=== PATIENT | female | born 1990 | race Caucasian/White ===

== ENCOUNTER 2017-10-14 06:26 | Inpatient (IN) ==
[2017-10-14 06:56] LABS: Basophils # 0.1 10*3/uL (0.0-0.2); Basophils % 0.4 % (0.0-0.8); Eosinophils # 0.4 10*3/uL (0.0-0.87); Eosinophils % 2.7 % (0.00-10.9); Hematocrit 33.7 VOL% (35.7-47.0); Hemoglobin 11.1 GM/DL (12.0-16.0); Immature Granulocytes % 0.6 %; Immature Granulocytes Absolute 0.09 #; Lymphocytes % 21.5 % (21.3-54.2); Mean Corpuscular HGB Conc 32.9 GM/DL (32-36); Mean Corpuscular Hemoglobin 27 PG (27-34); Mean Corpuscular Volume 82.8 FL (87-102); Mean Platelet Volume 9.6 FL (9.6-12.0); Monocytes # 1.2 10*3/uL (0.11-0.8); Monocytes % 8.3 % (1.7-12.7); Neutrophils # 9.3 10*3/uL (1.4-7.4); Neutrophils % 66.5 % (38.7-73.9); Platelet Count 404 T/CUMM (130-400); Red Blood Count 4.07 MC/CUMM (3.8-5.5); Red Cell Distribution Width 13.2 % (9.3-17.3); White Blood Count 13.9 T/CUMM (4-12)
[2017-10-14] MEDS ORDERED: ONDANSETRON 4 MG/2 ML VIAL IV STA (07:05)
[2017-10-14] MEDS ORDERED: MORPHINE 4 MG/1 ML VIAL IV STA (07:05)
[2017-10-14] MEDS ORDERED: ONDANSETRON 4 MG/2 ML VIAL ONE (07:06)
[2017-10-14] MEDS ORDERED: MORPHINE 4 MG/1 ML VIAL ONE (07:07)
[2017-10-14] MEDS ORDERED: SODIUM CHLORIDE 0.9% 1,000 ML IV STA (07:18)
[2017-10-14 07:26] LABS: Albumin 2.4 G/DL (3.4-5.0); Bilirubin,Total 0.6 MG/DL (0.2-1.0); Calcium 9.1 MG/DL (8.5-10.1); Osmolality,Calculated 274.1 MOS/KG (273-304); Total Protein 8.3 G/DL (6.4-8.3)
[2017-10-14] MEDS ORDERED: CLINDAMYCIN INJ 900 MG in PREMIX 1 EACH IV STA (11:18)
[2017-10-14] MEDS ORDERED: GENTAMICIN INJ 160 MG in SODIUM CHLORIDE 0.9% 100 ML IV STA (11:18)
[2017-10-14] MEDS ORDERED: IBUPROFEN 800 MG TABLET PO PRN (12:46)
[2017-10-14] MEDS ORDERED: DEXTROSE 50% 25 GM/50 ML VIAL IV PRN (12:46)
[2017-10-14] MEDS ORDERED: GLUCAGON 1 MG VIAL IM PRN (12:46)
[2017-10-14] MEDS ORDERED: BISACODYL 10 MG SUPP RECTAL PRN (12:46)
[2017-10-14] MEDS ORDERED: MAGNESIUM HYDROXIDE SUSP 30 ML UDCUP PO PRN (12:46)
[2017-10-14] MEDS ORDERED: ONDANSETRON 4 MG/2 ML VIAL IV PRN (12:46)
[2017-10-14] MEDS ORDERED: ACETAMINOPHEN 325 MG TABLET PO PRN (12:46)
[2017-10-14] MEDS: INSULIN LISPRO 100 UNIT/ML SUBCUT SCH ×4 (14:44→21:43)
[2017-10-14] MEDS: LACTATED RINGERS 1,000 ML IV SCH (16:53)
[2017-10-14] MEDS: GABAPENTIN 300 MG CAPSULE PO SCH ×2 (17:35→21:16)
[2017-10-14] MEDS ORDERED: tiZANidine 4 MG TABLET PO SCH (21:00)
[2017-10-14] MEDS: metFORMIN 500 MG TABLET PO SCH (21:16)
[2017-10-14] MEDS: DOCUSATE SODIUM 100 MG CAPSULE PO SCH (21:17)
[2017-10-14] MEDS: CLINDAMYCIN INJ 900 MG in PREMIX 1 EACH IV SCH (21:35)
[2017-10-14 22:10] LABS: Apearance,Urine CLOUDY (Clear); Bilirubin,Urine Negative (Negative); Blood, Urine Small mg/dL (Negative); Glucose,Urine (UA) Negative (Negative); Hyaline Casts,Urine 6 /LPF (0-3); Ketones,Urine Negative (Negative); Mucus,Urine Occasional /LPF (Occasional); Nitrite,Urine Negative (Negative); Protein,Urine 30 MG/DL; RBC,Urine 11 /HPF (0-4); Squamous Epithelial Cell,Urine Occasional /HPF (0-10); Urine Color Yellow (Yellow); Urine Specific Gravity 1.014 (1.001-1.035); Urine Urobilinogen < 2.0 EU/DL (0.2-1.0); WBC,Urine 368 /HPF (0-6)
[2017-10-15] MEDS ORDERED: GENTAMICIN INJ 120 MG in PREMIX 1 EACH IV SCH
[2017-10-15] MEDS: LACTATED RINGERS 1,000 ML IV SCH ×2 (03:22→14:45)
[2017-10-15] MEDS: CLINDAMYCIN INJ 900 MG in PREMIX 1 EACH IV SCH ×2 (03:22→08:06)
[2017-10-15 05:44] LABS: Basophils # 0.1 10*3/uL (0.0-0.2); Basophils % 0.5 % (0.0-0.8); Eosinophils # 0.6 10*3/uL (0.0-0.87); Eosinophils % 4.8 % (0.00-10.9); Hematocrit 31.9 VOL% (35.7-47.0); Hemoglobin 9.8 GM/DL (12.0-16.0); Immature Granulocytes % 0.7 %; Immature Granulocytes Absolute 0.09 #; Lymphocytes # 2.9 10*3/uL (1.4-4.0); Lymphocytes % 23.6 % (21.3-54.2); Mean Corpuscular HGB Conc 30.7 GM/DL (32-36); Mean Corpuscular Hemoglobin 27 PG (27-34); Mean Corpuscular Volume 87.9 FL (87-102); Mean Platelet Volume 9.8 FL (9.6-12.0); Monocytes # 1.1 10*3/uL (0.11-0.8); Monocytes % 8.9 % (1.7-12.7); Neutrophils # 7.4 10*3/uL (1.4-7.4); Neutrophils % 61.5 % (38.7-73.9); Platelet Count 376 T/CUMM (130-400); Red Blood Count 3.63 MC/CUMM (3.8-5.5); Red Cell Distribution Width 13.6 % (9.3-17.3); White Blood Count 12.1 T/CUMM (4-12)
[2017-10-15 06:09] LABS: Calcium 8.7 MG/DL (8.5-10.1); Osmolality,Calculated 275.7 MOS/KG (273-304); Potassium 4.9 MMOL/L (3.5-5.1)
[2017-10-15] MEDS: INSULIN LISPRO 100 UNIT/ML SUBCUT SCH ×2 (07:07→12:23)
[2017-10-15] MEDS: GABAPENTIN 300 MG CAPSULE PO SCH ×2 (08:01→14:44)
[2017-10-15] MEDS: metFORMIN 500 MG TABLET PO SCH (08:01)
[2017-10-15] MEDS: DOCUSATE SODIUM 100 MG CAPSULE PO SCH (08:02)
[2017-10-15] MEDS ORDERED: SILVER SULFADIAZINE 1% CREAM 25 GM TUBE TOP SCH (09:00)
[2017-10-15 11:58] VITALS: BP 106/64
[2017-10-15] MEDS ORDERED: GENTAMICIN INJ 330 MG in SODIUM CHLORIDE 0.9% 100 ML IV SCH (12:00)
== END 2017-10-15 16:57 | disposition home or self-care (01) | DRG 759 ==
LOC: N.ED 06:26 → N.EDINP 06:26 → N.2W 13:44 → N.2E 16:24
PROVIDERS: ADMIT Specialist; ATTEND Specialist

== ENCOUNTER 2021-05-22 16:46 | Inpatient (IN) ==
[2021-05-22] MEDS ORDERED: ONDANSETRON 4 MG/2 ML VIAL IV STA (19:50)
[2021-05-22] MEDS ORDERED: MORPHINE 2 MG/1 ML SYRINGE IV STA (19:50)
[2021-05-22 20:21] LABS: Basophils % 0.3 % (0.0-0.8); Eosinophils # 0.3 10*3/uL (0.0-0.87); Eosinophils % 2.3 % (0.00-10.9); Hematocrit 37.6 VOL% (35.7-47.0); Hemoglobin 12.2 GM/DL (12.0-16.0); Immature Granulocytes % 0.4 %; Immature Granulocytes Absolute 0.05 #; Lymphocytes # 2.6 10*3/uL (1.4-4.0); Lymphocytes % 23.2 % (21.3-54.2); Mean Corpuscular HGB Conc 32.4 GM/DL (32-36); Mean Corpuscular Volume 85.8 FL (87-102); Mean Platelet Volume 10.3 FL (9.6-12.0); Neutrophils % 65.8 % (38.7-73.9); Platelet Count 260 T/CUMM (130-400); Red Blood Count 4.38 MC/CUMM (3.8-5.5); Red Cell Distribution Width 13.5 % (9.3-17.3); White Blood Count 11.2 T/CUMM (4-12)
[2021-05-22 20:31] LABS: Glucose,Urine (UA) Negative (Negative); Protein,Urine Negative (Negative); Urine Color Yellow (Yellow); Urine Specific Gravity 1.025 (1.001-1.035); Urine pH 5.5 (4.5-8.0)
[2021-05-22 20:32] LABS: Bilirubin,Urine Negative (Negative); Blood, Urine Negative (Negative); Ketones,Urine Trace mg/dL (Negative); Nitrite,Urine Negative (Negative); Urine Appearance Clear (Clear); Urine Urobilinogen 0.2 eU/dL (<2.0)
[2021-05-22 20:33] LABS: Mucus,Urine Occasional /LPF (Occasional); RBC,Urine 1 /HPF (0-4); Squamous Epithelial Cell,Urine Occasional /HPF (0-10)
[2021-05-22 20:39] LABS: Albumin 2.8 G/DL (3.4-5.0); Bilirubin,Total 0.5 MG/DL (0.20-1.00); Calcium 8.9 MG/DL (8.5-10.1); Osmolality,Calculated 269.1 MOS/KG (273-304); Potassium 3.4 MMOL/L (3.5-5.1); Total Protein 7.2 G/DL (6.4-8.2)
[2021-05-22] MEDS ORDERED: SODIUM CHLORIDE 0.9% 1,000 ML IV STA (20:49)
[2021-05-22] MEDS ORDERED: HYDROmorphone 1 MG/1 ML SYRINGE IV STA (22:10)
[2021-05-22] MEDS ORDERED: CIPROFLOXACIN INJ 400 MG/200 ML PREMIX IV STA (23:26)
[2021-05-22] MEDS ORDERED: metroNIDAZOLE INJ 500 MG/100 ML PREMIX IV STA (23:26)
[2021-05-23] MEDS ORDERED: POTASSIUM CHLORIDE 20 MEQ TABLET PO PRN (00:35)
[2021-05-23] MEDS ORDERED: GLUCAGON 1 MG VIAL IM PRN (00:35)
[2021-05-23] MEDS ORDERED: POTASSIUM CHLORIDE RIDER 10 MEQ/100 ML PREMIX IV PRN (00:35)
[2021-05-23] MEDS ORDERED: MAGNESIUM SULF RIDER 4 GM/100 ML PREMIX IV PRN (00:35)
[2021-05-23] MEDS ORDERED: MAGNESIUM SULF RIDER 2 GM/50 ML PREMIX IV PRN (00:35)
[2021-05-23] MEDS ORDERED: ACETAMINOPHEN 325 MG TABLET PO PRN (00:35)
[2021-05-23] MEDS ORDERED: DEXTROSE 10% 250 ML BAG IV PRN (00:58)
[2021-05-23] MEDS: CIPROFLOXACIN INJ 400 MG/200 ML PREMIX IV SCH ×2 (01:54→15:30)
[2021-05-23] MEDS: SODIUM CHLORIDE 0.9% 1,000 ML IV SCH ×4 (01:54→20:00)
[2021-05-23] MEDS ORDERED: metroNIDAZOLE INJ 500 MG/100 ML PREMIX IV SCH (03:00)
[2021-05-23] MEDS: ONDANSETRON 4 MG/2 ML VIAL IV PRN ×3 (04:10→18:01)
[2021-05-23 05:27] LABS: Basophils % 0.2 % (0.0-0.8); Eosinophils # 0.3 10*3/uL (0.0-0.87); Hematocrit 33.4 VOL% (35.7-47.0); Hemoglobin 10.7 GM/DL (12.0-16.0); Immature Granulocytes % 0.3 %; Immature Granulocytes Absolute 0.03 #; Lymphocytes # 2.3 10*3/uL (1.4-4.0); Lymphocytes % 23.1 % (21.3-54.2); Mean Corpuscular Volume 87.2 FL (87-102); Mean Platelet Volume 10.7 FL (9.6-12.0); Monocytes % 9.5 % (1.7-12.7); Neutrophils % 63.9 % (38.7-73.9); Platelet Count 218 T/CUMM (130-400); Red Blood Count 3.83 MC/CUMM (3.8-5.5); Red Cell Distribution Width 13.4 % (9.3-17.3); White Blood Count 9.7 T/CUMM (4-12)
[2021-05-23 05:45] LABS: Osmolality,Calculated 272.7 MOS/KG (273-304); Potassium 3.5 MMOL/L (3.5-5.1)
[2021-05-23] MEDS: metroNIDAZOLE INJ 500 MG/100 ML PREMIX IV SCH ×2 (09:00→17:58)
[2021-05-23] MEDS: SERTRALINE 100 MG TABLET PO SCH (09:03)
[2021-05-23] MEDS: INSULIN REGULAR 100 UNIT/ML SUBCUT SCH ×4 (09:03→21:27)
[2021-05-23] MEDS: FENOFIBRATE 145 MG TABLET PO SCH (09:05)
[2021-05-23] MEDS: DAPAGLIFLOZIN 10 MG TABLET PO SCH (09:05)
[2021-05-23] MEDS: PREGABALIN 100 MG CAPSULE PO SCH ×2 (09:05→21:29)
[2021-05-23] MEDS: DOCUSATE SODIUM 100 MG CAPSULE PO SCH ×2 (09:06→21:17)
[2021-05-23] MEDS: ENOXAPARIN 40 MG/0.4 ML SYRINGE SUBCUT SCH (09:06)
[2021-05-23] MEDS: FOLIC ACID 1 MG TABLET PO SCH (09:07)
[2021-05-23] MEDS ORDERED: ZINC OXIDE PASTE 113 GM TUBE TOP PRN (11:08)
[2021-05-23] MEDS ORDERED: BISACODYL 5 MG TABLET PO ONE (15:41)
[2021-05-23] MEDS: traZODone 50 MG TABLET PO SCH (21:31)
[2021-05-24] MEDS: metroNIDAZOLE INJ 500 MG/100 ML PREMIX IV SCH ×4 (00:29→23:13)
[2021-05-24] MEDS: SODIUM CHLORIDE 0.9% 1,000 ML IV SCH ×2 (01:00→15:00)
[2021-05-24] MEDS: CIPROFLOXACIN INJ 400 MG/200 ML PREMIX IV SCH ×2 (01:51→14:59)
[2021-05-24 04:59] LABS: Basophils % 0.5 % (0.0-0.8); Eosinophils # 0.2 10*3/uL (0.0-0.87); Eosinophils % 3.7 % (0.00-10.9); Hematocrit 31.5 VOL% (35.7-47.0); Hemoglobin 10.2 GM/DL (12.0-16.0); Immature Granulocytes % 0.5 %; Immature Granulocytes Absolute 0.03 #; Lymphocytes # 1.5 10*3/uL (1.4-4.0); Lymphocytes % 22.9 % (21.3-54.2); Mean Corpuscular HGB Conc 32.4 GM/DL (32-36); Mean Corpuscular Volume 87.3 FL (87-102); Mean Platelet Volume 10.5 FL (9.6-12.0); Monocytes % 10.8 % (1.7-12.7); Neutrophils % 61.6 % (38.7-73.9); Platelet Count 215 T/CUMM (130-400); Red Blood Count 3.61 MC/CUMM (3.8-5.5); Red Cell Distribution Width 13.5 % (9.3-17.3); White Blood Count 6.6 T/CUMM (4-12)
[2021-05-24] MEDS: ONDANSETRON 4 MG/2 ML VIAL IV PRN ×3 (05:00→16:45)
[2021-05-24 05:15] LABS: Osmolality,Calculated 275.4 MOS/KG (273-304); Potassium 4.2 MMOL/L (3.5-5.1)
[2021-05-24] MEDS: FOLIC ACID 1 MG TABLET PO SCH (09:38)
[2021-05-24] MEDS: ENOXAPARIN 40 MG/0.4 ML SYRINGE SUBCUT SCH (09:38)
[2021-05-24] MEDS: PREGABALIN 100 MG CAPSULE PO SCH ×2 (09:38→20:28)
[2021-05-24] MEDS: DAPAGLIFLOZIN 10 MG TABLET PO SCH (09:38)
[2021-05-24] MEDS: DOCUSATE SODIUM 100 MG CAPSULE PO SCH ×2 (09:40→20:28)
[2021-05-24] MEDS: INSULIN REGULAR 100 UNIT/ML SUBCUT SCH ×4 (09:40→20:25)
[2021-05-24] MEDS: SERTRALINE 100 MG TABLET PO SCH (11:45)
[2021-05-24] MEDS: FENOFIBRATE 145 MG TABLET PO SCH (11:45)
[2021-05-24] MEDS: traZODone 50 MG TABLET PO SCH (20:28)
[2021-05-25] MEDS: CIPROFLOXACIN INJ 400 MG/200 ML PREMIX IV SCH (01:19)
[2021-05-25] MEDS: ONDANSETRON 4 MG/2 ML VIAL IV PRN ×4 (03:26→21:15)
[2021-05-25 05:32] LABS: Basophils % 0.4 % (0.0-0.8); Eosinophils # 0.3 10*3/uL (0.0-0.87); Eosinophils % 3.9 % (0.00-10.9); Hematocrit 32.7 VOL% (35.7-47.0); Hemoglobin 10.1 GM/DL (12.0-16.0); Immature Granulocytes % 0.6 %; Immature Granulocytes Absolute 0.04 #; Lymphocytes # 1.2 10*3/uL (1.4-4.0); Lymphocytes % 17.2 % (21.3-54.2); Mean Corpuscular HGB Conc 30.9 GM/DL (32-36); Mean Corpuscular Volume 88.9 FL (87-102); Mean Platelet Volume 10.7 FL (9.6-12.0); Monocytes % 5.8 % (1.7-12.7); Neutrophils % 72.1 % (38.7-73.9); Platelet Count 246 T/CUMM (130-400); Red Blood Count 3.68 MC/CUMM (3.8-5.5); Red Cell Distribution Width 13.4 % (9.3-17.3); White Blood Count 6.8 T/CUMM (4-12)
[2021-05-25 05:59] LABS: Calcium 8.4 MG/DL (8.5-10.1); Osmolality,Calculated 278.3 MOS/KG (273-304)
[2021-05-25] MEDS: PREGABALIN 100 MG CAPSULE PO SCH ×2 (09:54→21:11)
[2021-05-25] MEDS: DOCUSATE SODIUM 100 MG CAPSULE PO SCH ×3 (09:54→20:05)
[2021-05-25] MEDS: FENOFIBRATE 145 MG TABLET PO SCH (09:54)
[2021-05-25] MEDS: DAPAGLIFLOZIN 10 MG TABLET PO SCH (09:55)
[2021-05-25] MEDS: FOLIC ACID 1 MG TABLET PO SCH (09:55)
[2021-05-25] MEDS: ENOXAPARIN 40 MG/0.4 ML SYRINGE SUBCUT SCH (09:56)
[2021-05-25] MEDS: SERTRALINE 100 MG TABLET PO SCH (09:57)
[2021-05-25] MEDS: metroNIDAZOLE INJ 500 MG/100 ML PREMIX IV SCH (10:04)
[2021-05-25] MEDS: INSULIN REGULAR 100 UNIT/ML SUBCUT SCH ×4 (12:47→20:05)
[2021-05-25] MEDS: metroNIDAZOLE 500 MG TABLET PO SCH ×2 (17:13→22:59)
[2021-05-25] MEDS: CIPROFLOXACIN 500 MG TABLET PO SCH (21:11)
[2021-05-25] MEDS: traZODone 50 MG TABLET PO SCH (21:11)
[2021-05-25] MEDS: SODIUM CHLORIDE 0.9% 1,000 ML IV SCH (22:50)
[2021-05-26 05:47] LABS: Basophils % 0.5 % (0.0-0.8); Eosinophils # 0.3 10*3/uL (0.0-0.87); Eosinophils % 5.2 % (0.00-10.9); Hematocrit 31.2 VOL% (35.7-47.0); Immature Granulocytes % 0.3 %; Immature Granulocytes Absolute 0.02 #; Lymphocytes # 2.4 10*3/uL (1.4-4.0); Lymphocytes % 38.2 % (21.3-54.2); Mean Corpuscular HGB Conc 32.1 GM/DL (32-36); Mean Corpuscular Volume 87.2 FL (87-102); Mean Platelet Volume 10.7 FL (9.6-12.0); Monocytes % 7.6 % (1.7-12.7); Neutrophils % 48.2 % (38.7-73.9); Platelet Count 285 T/CUMM (130-400); Red Blood Count 3.58 MC/CUMM (3.8-5.5); Red Cell Distribution Width 13.2 % (9.3-17.3); White Blood Count 6.2 T/CUMM (4-12)
[2021-05-26] MEDS: metroNIDAZOLE 500 MG TABLET PO SCH ×2 (05:56→15:32)
[2021-05-26 06:05] LABS: Calcium 8.6 MG/DL (8.5-10.1); Osmolality,Calculated 278.1 MOS/KG (273-304); Potassium 3.7 MMOL/L (3.5-5.1)
[2021-05-26 06:36] LABS: Anisocytosis Slight; Band Neutrophils 3 % (0-10); Eosinophils 9 % (0-10); Lymphocytes 40 % (20-55); Platelet Estimate Normal; Segmented Neutrophils 42 % (50-85); Total Cells Counted 100
[2021-05-26] MEDS: INSULIN REGULAR 100 UNIT/ML SUBCUT SCH ×2 (07:30→11:30)
[2021-05-26] MEDS: FOLIC ACID 1 MG TABLET PO SCH (09:27)
[2021-05-26] MEDS: PREGABALIN 100 MG CAPSULE PO SCH (09:27)
[2021-05-26] MEDS: CIPROFLOXACIN 500 MG TABLET PO SCH (09:27)
[2021-05-26] MEDS: FENOFIBRATE 145 MG TABLET PO SCH (09:27)
[2021-05-26] MEDS: SERTRALINE 100 MG TABLET PO SCH (09:28)
[2021-05-26] MEDS: ENOXAPARIN 40 MG/0.4 ML SYRINGE SUBCUT SCH (09:29)
[2021-05-26] MEDS: DAPAGLIFLOZIN 10 MG TABLET PO SCH (09:29)
[2021-05-26] MEDS: DOCUSATE SODIUM 100 MG CAPSULE PO SCH (09:34)
[2021-05-26 17:05] VITALS: BP 107/56
== END 2021-05-26 16:31 | disposition home or self-care (01) | DRG 392 ==
LOC: N.EDINP 16:46 → N.ED 16:46 → SUATTDRO 05-23 00:35 → N.5E 05-23 02:06 → UNDODISOB 05-26 16:31
PROVIDERS: ADMIT Internal Medicine; ATTEND Internal Medicine